=== PATIENT | female | born 1965 | race Caucasian/White ===

== ENCOUNTER → 2020-02-02 | Outpatient (CLI) | payer OTHER ==
--- NOTE | 2020-02-02 11:38 | Diagnostic Imaging Report ---
Indication: Abdominal pain, vomiting Technique: Spiral acquisitions obtained through the abdomen and pelvis. No oral contrast utilized, per emergency room physician request No IV contrast utilized, per emergency room physician request.. Multiplanar reconstructions were generated. Total dose length product 785 mGycm. CTDIvol(s) 13 mGy. Dose reduction achieved using automated exposure control Comparison: None Findings: Lack of enteric contrast limits assessment of the GI tract. There is a Spigelian type abdominal wall hernia in the left lower quadrant. Mesenteric fat and a loop of small bowel are herniated through the fascia of the transversus abdominis and internal oblique muscles and deep fascia of the rectus abdominis muscle, but remaining deep to the lateral aspect of the rectus abdominis muscle and superficial fascial layers. Small bowel proximal to the hernia and within the hernia is dilated. However, there appears to be obstruction at the level of the small bowel exiting the hernia, and the small bowel distal to the hernia is decompressed. A second ventral hernia, located more inferiorly and in the midline, contains a loop of the transverse colon. Just cephalad to this hernia, there is a second opening into which protrudes a knuckle of small bowel. This is nonobstructive This does not appear to be obstructive. There is, more cephalad, a midline ventral hernia that contains only fat. There is evidence of prior right lower quadrant ventral hernia repair, with mesh anchors seen in the right lower quadrant. The appendix is normal. No evidence of diverticulosis or diverticulitis. No free or loculated intraperitoneal gas or fluid is evident. Lack of IV contrast limits assessment of the solid organs. The liver is diffusely hypoattenuating, consistent with fatty change. There are some areas of focal sparing in the usual location adjacent to the gallbladder fossa. The gallbladder, bile ducts, pancreas, spleen, adrenals, right kidney are unremarkable. Some parapelvic cysts are seen in the left renal sinus. The uterus has been removed. No pelvic mass or adenopathy. The included lung bases are clear. The bones demonstrate bilateral L5 spondylolysis, grade 1 L5 on S1 spondylolisthesis, and secondary degenerative change at L5-S1. Impression: Evidence of proximal small bowel obstruction secondary to a left lower quadrant spigelian hernia Multiple other ventral hernias, as described, including one containing transverse colon, another containing small bowel an another containing only fat. No evidence of strangulation or obstruction related to such Evidence of prior right lower quadrant ventral hernia repair Fatty liver Bilateral L5 spondylolysis, grade 1 L5 on S1 spondylolisthesis, and secondary degenerative change at L5-S1 other findings as noted, including prior hysterectomy, left renal sinus parapelvic cysts Critical value findings discussed by phone with Dr. Navarrete in the [facility] emergency room at the time of interpretation The CT scanner at [facility] is accredited by the [employer] and the scans are performed using protocols designed to limit radiation exposure to as low as reasonably achievable to attain images of sufficient resolution adequate for diagnostic evaluation.
== END | disposition home or self-care (01) ==
LOC: CAT 10:17
DX: R10.9 Unspecified abdominal pain (principal); R11.10 Vomiting, unspecified; K76.0 Fatty (change of) liver, not elsewhere classified; M47.817 Spondylosis without myelopathy or radiculopathy, lumbosacral region; Z90.710 Acquired absence of both cervix and uterus; N28.1 Cyst of kidney, acquired; K43.6 Other and unspecified ventral hernia with obstruction, without gangrene; K43.9 Ventral hernia without obstruction or gangrene
CPT/HCPCS: 74176